=== PATIENT | female | born 1960 | race Caucasian/White ===

== ENCOUNTER 2016-06-20 16:42 | Emergency (ER) | payer BC ==
[~2016-06-20] VITALS: Ht 152.4 cm; Wt 64.6 kg
[~2016-06-20 16:42] MED LIST: ALBUAER19 INH; AMT10 PO; CHOL100010 PO; LINA1CAP2 PO; METO50TA7 PO
[2016-06-20 16:46] VITALS: TEMP 36.9; Ht 152.4 cm; Wt 64.6 kg
[2016-06-20] MEDS ORDERED: DiphenhydrAMINE HCL 50 MG/ML VIAL IV STA ×2 (16:59→17:52)
[2016-06-20] MEDS ORDERED: KETOROLAC TROMETHAMINE 30 MG/ML VIAL IV STA (16:59)
[2016-06-20] MEDS ORDERED: PROCHLORPERAZINE 5 MG/ML 2 ML VIAL IV STA (16:59)
[2016-06-20] MEDS ORDERED: SODIUM CHLORIDE 0.9% 1000ML 2,000 ML IV STA (17:00)
[2016-06-20 17:21] LABS: BASO % 0.3 %; BASO ABS # 0.02 K/uL (0-0.2); COMPLETE YES; EOS % 1.6 %; HEMATOCRIT 38.7 % (37-47); IG% 0.2 %; LYMPH % 28.5 %; LYMPH ABS # 1.77 K/uL (1.2-3.4); MEAN CORPUSCULAR HEMOGLOBIN 31.4 pg (25-34); MEAN CORPUSCULAR HGB CONC 34.9 g/dl (32-36); MEAN PLATELET VOLUME 9.5 fL (7.4-10.4); MONO % 8.2 %; NEUT % 61.2 %; PLATELET COUNT 301 K/uL (130-400); WHITE BLOOD COUNT 6.22 K/uL (4.8-10.8)
[2016-06-20] MEDS ORDERED: SERT1TAB88 (17:21)
[2016-06-20] MEDS ORDERED: TPRSR/25 PO (17:21)
[2016-06-20] MEDS ORDERED: SCOP1.5D2 TOP (17:21)
[2016-06-20 17:38] LABS: ALT/SGPT 41 U/L (12-78); AST/SGOT 27 U/L (15-37); BLOOD UREA NITROGEN 14 mg/dl (7-18); BUN/CREATININE RATIO 18.4 (10-20); CALCIUM 9.1 mg/dl (8.5-10.1); CARBON DIOXIDE 31 mmol/L (21-32); CHLORIDE 105 mmol/L (98-107); CREATININE 0.77 mg/dl (0.60-1.20); GLUCOSE 102 mg/dl (70-99); POTASSIUM 4.2 mmol/L (3.5-5.1); SODIUM 143 mmol/L (136-145)
[2016-06-20] MEDS ORDERED: CHOL100027 PO (17:38)
[2016-06-20] MEDS ORDERED: VNTHFA/IN INH (17:38)
[2016-06-20 17:40] LABS: ALKALINE PHOSPHATASE 80 U/L (45-117)
[2016-06-20] MEDS ORDERED: ELET40TA PO (17:48)
[2016-06-20] MEDS ORDERED: METO10TA3 PO (17:48)
[2016-06-20] MEDS ORDERED: ANT25 PO (17:48)
[2016-06-20] MEDS ORDERED: MOME6000 NAE (17:48)
[2016-06-20] MEDS ORDERED: ATV5X PO (17:48)
[2016-06-20] MEDS ORDERED: ASTN NAE (17:48)
[2016-06-20 18:47] LABS: URINE APPEARANCE CLEAR (CLEAR); URINE BILIRUBIN NEG (NEG); URINE COLOR YELLOW; URINE NITRITE NEG (NEG); URINE SPECIFIC GRAVITY 1.016 (1.000-1.030); UROBILINOGEN NEG (NEG); ZZUR CULT IF INDIC CLEAN CATCH NO
[2016-06-20 18:49] LABS: MANUAL MICROSCOPIC REQUIRED? NO; REVIEW REQ? NO
[2016-06-20] MEDS ORDERED: HYDROmorphone INJ 0.5 MG/0.5 ML SYR IV STA (19:05)
[2016-06-20 19:21] VITALS: BP 110/72; PULSE 90; O2SAT 97
[2016-06-20] MEDS ORDERED: PANT40TA PO (21:19)
[2016-06-20] MEDS ORDERED: AMOX500C3 PO (21:45)
[2016-06-20] MEDS ORDERED: MULT-506 PO (21:53)
--- NOTE | 2016-06-20 21:56 | EMERGENCY ROOM VISIT NOTE ---
History Report prepared by Yulissa: Alexsandra Carroll Under the Supervision of: Dr. Ming Cabrera D.O. First contact with patient: 16:49 Chief Complaint: HEADACHE Stated Complaint: ACUTE NAUSEA, MIGRAINE History of Present Illness The patient is a 55 year old female who presents to the Emergency Room with complaints of constant headache for the past week. The patient has a history of abdominal migraines and has been experiencing symptoms for 10+ years. She has been experiencing symptoms of her abdominal migraines for the past week. She saw both her PCP and her GI doctor, Dr. Ibrahim, this week for her symptoms. Dr. Ibrahim prescribed scopolamine patches, which the patient tried but states that they did not help and only made her groggy. The patient reports nausea and headache. Her headache came on gradually and is located in the front of her head. She notes tinnitus. These symptoms are consistent with her typical migraine headaches. She rates her pain as an 8/10 in severity. The patient denies abdominal pain, vomiting, and changes in vision. She has been able to keep food and water down, and ate 2 pieces of toast earlier today. She tried taking all of her usual medications without any relief of her symptoms. 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 The patient had a normal bowel movement this morning. Source of History: patient Onset: 1 week ago Position: head Symptom Intensity: 8/10 Timing: constant Modifying Factors (Relieving): other (none) Associated Symptoms: + nausea, No abdominal pain, No vomiting Note: Pt notes tinnitus. Review of Systems See HPI for pertinent positives & negatives. A total of 10 systems reviewed and were otherwise negative. Past Medical & Surgical Medical Problems: (1) Bronchitis (2) Chest pain (3) IBS (irritable bowel syndrome) (4) IgA deficiency (5) Migraine (6) Pancreatitis (7) Pancreatitis (8) Pneumonia (9) UTI (urinary tract infection) Family History FH: heart disease Kidney disease Social History Smoking Status: Never Smoker Alcohol Use: none Drug Use: none Marital Status: Housing Status: lives with family Occupation Status: employed Current/Historical Medications Scheduled Amitriptyline HCl (Amitriptyline HCl), 30 MG PO HS Amoxicillin (Amoxil), 500 MG PO QPM Cholecalciferol (Vitamin D 1000 Unit), 1,000 INTER.UNIT PO DAILY Eletriptan (Relpax), 40 MG PO DIRECTED Linaclotide (Linzess), 290 MG PO 3XWK Metoprolol Succinate (Metoprolol Succinate ER), 25 MG PO DAILY Multivitamin (Multivitamin), 1 TAB PO DAILY Pantoprazole (Protonix), 40 MG PO DAILY Scopolamine (Transderm-Scop), 1 PATCH TOP UD Scheduled PRN Azelastine Hcl (Astelin Nasal [place]), 2 SPRAYS EAGLE DAILY PRN for Nasal Congestion Lorazepam (Lorazepam), 1 TAB PO Q8 PRN for Anxiety Meclizine HCl (Meclizine HCl), 0.5-1 TAB PO TID PRN for Dizziness or Vertigo Metoclopramide HCl (Metoclopramide HCl), 5 MG PO ACHS PRN for Mometasone Furoate (Nasal) (Mometasone Furoate), 1 SPRAY EAGLE BID PRN for Nasal Congestion Allergies Coded Allergies: Metoclopramide (Verified Allergy, Intermediate, ADVERSE REACTIONS, 04/24/15 ) Atropine (Verified Allergy, Unknown, LOMOTIL, 04/24/15) Diphenoxylate (Verified Allergy, Unknown, LOMOTIL, 04/24/15) Morphine (Verified Allergy, Unknown, 09/20/12) ANXIOUS/NERVOUS Sulfa Drugs (Verified Allergy, Unknown, BACTRIM-HEPATITIS, 04/24/15) Sulfamethoxazole (Verified Allergy, Unknown, 04/24/15) Promethazine (Verified Adverse Reaction, Mild, ANXIOUS,NERVOUS, 04/24/15) ANXIOUS/NERVOUS Physical Exam Vital Signs Date Time Temp Pulse Resp B/P Pulse Ox O2 Delivery O2 Flow Rate FiO2 06/20/16 19:21 90 16 110/72 97 Room Air 06/20/16 16:46 36.9 93 18 105/71 95 Room Air Ambu-Bag Physical Exam GENERAL: alert, well appearing, sitting up in bed, well nourished, no distress, non-toxic EYE EXAM: normal conjunctiva, PERRL and EOM's intact EARS: TMs clear bilaterally OROPHARYNX: no exudate, no erythema, lips, buccal mucosa, and tongue normal and mucous membranes are moist NECK: supple, no nuchal rigidity, no adenopathy, non-tender LUNGS: Clear to auscultation. Normal chest wall mechanics HEART: no murmurs, S1 normal and S2 normal ABDOMEN: abdomen soft, non-tender, normo-active bowel sounds, no masses, no rebound or guarding. BACK: Back is symmetrical on inspection and there is no deformity, no midline tenderness, no CVA tenderness. SKIN: no rashes and no bruising UPPER EXTREMITIES: upper extremities are grossly normal. LOWER EXTREMITIES: No pitting edema. NEURO EXAM: Normal sensorium, cranial nerves II-XII intact, normal speech, no weakness of arms, no weakness of legs. No drift. Finger to nose intact. Gross sensation intact. Medical Decision & Procedures Laboratory Results 06/20/16 17:12 Red Blood Count 4.30, Mean Corpuscular Volume 90.0, Mean Corpuscular Hemoglobin 31.4, Mean Corpuscular Hemoglobin Concent 34.9, Mean Platelet Volume 9.5, Neutrophils (%) (Auto) 61.2, Lymphocytes (%) (Auto) 28.5, Monocytes (%) (Auto) 8.2, Eosinophils (%) (Auto) 1.6, Basophils (%) (Auto) 0.3, Neutrophils # (Auto) 3.81, Lymphocytes # (Auto) 1.77, Monocytes # (Auto) 0.51, Eosinophils # (Auto) 0.10, Basophils # (Auto) 0.02 06/20/16 17:12 Test 06/20/16 17:12 06/20/16 18:30 White Blood Count 6.22 K/uL (4.8-10.8) Red Blood Count 4.30 M/uL (4.2-5.4) Hemoglobin 13.5 g/dL (12.0-16.0) Hematocrit 38.7 % (37-47) Mean Corpuscular Volume 90.0 fL (80-100) Mean Corpuscular Hemoglobin 31.4 pg (25-34) Mean Corpuscular Hemoglobin Concent 34.9 g/dl (32-36) Platelet Count 301 K/uL (130-400) Mean Platelet Volume 9.5 fL (7.4-10.4) Neutrophils (%) (Auto) 61.2 % Lymphocytes (%) (Auto) 28.5 % Monocytes (%) (Auto) 8.2 % Eosinophils (%) (Auto) 1.6 % Basophils (%) (Auto) 0.3 % Neutrophils # (Auto) 3.81 K/uL (1.4-6.5) Lymphocytes # (Auto) 1.77 K/uL (1.2-3.4) Monocytes # (Auto) 0.51 K/uL (0.11-0.59) Eosinophils # (Auto) 0.10 K/uL (0-0.5) Basophils # (Auto) 0.02 K/uL (0-0.2) RDW Standard Deviation 40.2 fL (36.4-46.3) RDW Coefficient of Variation 12.2 % (11.5-14.5) Immature Granulocyte % (Auto) 0.2 % Immature Granulocyte # (Auto) 0.01 K/uL (0.00-0.02) Anion Gap 7.0 mmol/L (3-11) Est Creatinine Clear Calc Drug Dose 67.6 ml/min Estimated GFR () 99.3 Estimated GFR (Non- 85.7 BUN/Creatinine Ratio 18.4 (10-20) Calcium Level 9.1 mg/dl (8.5-10.1) Total Bilirubin 0.3 mg/dl (0.2-1) Direct Bilirubin < 0.1 mg/dl (0-0.2) Aspartate Amino Transf (AST/SGOT) 27 U/L (15-37) Alanine Aminotransferase (ALT/SGPT) 41 U/L (12-78) Alkaline Phosphatase 80 U/L (45-117) Total Protein 7.7 gm/dl (6.4-8.2) Albumin 4.1 gm/dl (3.4-5.0) Lipase 126 U/L (73-393) Urine Color YELLOW Urine Appearance CLEAR (CLEAR) Urine pH 6.0 (4.5-7.5) Urine Specific [place] 1.016 (1.000-1.030) Urine Protein NEG (NEG) Urine Glucose (UA) NEG (NEG) Urine Ketones NEG (NEG) Urine Occult Blood NEG (NEG) Urine Nitrite NEG (NEG) Urine Bilirubin NEG (NEG) Urine Urobilinogen NEG (NEG) Urine Leukocyte Esterase NEG (NEG) Urine WBC (Auto) 1-5 /hpf (0-5) Urine RBC (Auto) 0-4 /hpf (0-4) Urine Hyaline Casts (Auto) 1-5 /lpf (0-5) Urine Epithelial Cells (Auto) 10-20 /lpf (0-5) Urine Bacteria (Auto) NEG (NEG) Urine Test NEG (NEG) Laboratory results per my review. Medications Administered Medications (Trade) Dose Ordered Sig/Myra Route Start Time Stop Time Status Last Admin Dose Admin Prochlorperazine Edisylate (Compazine Inj) 10 mg NOW STAT IV 06/20/16 16:59 06/20/16 17:00 DC 06/20/16 17:22 10 MG Diphenhydramine HCl (Benadryl Inj) 50 mg NOW STAT IV 06/20/16 16:59 06/20/16 17:00 DC 06/20/16 17:22 50 MG Ketorolac Tromethamine 30 mg 30 mg NOW STAT IV 06/20/16 16:59 06/20/16 17:00 DC 06/20/16 17:23 30 MG Sodium Chloride (Nss 1000ml) 2,000 ml @ 999 mls/hr Q2H1M STAT IV 06/20/16 17:00 06/20/16 19:00 DC 06/20/16 17:21 999 MLS/HR Diphenhydramine HCl (Benadryl Inj) 25 mg NOW STAT IV 06/20/16 17:52 06/20/16 17:53 DC 06/20/16 17:55 25 MG Hydromorphone HCl (Dilaudid Inj) 0.5 mg NOW STAT IV 06/20/16 19:05 06/20/16 19:06 DC 06/20/16 19:20 0.5 MG ED Course ED COURSE: Vital signs were reviewed and showed normal vitals The patients medical record was reviewed The above diagnostic studies were performed and reviewed. ED treatments and interventions as stated above. 1650: The patient was evaluated in room B7. A complete history and physical examination was performed. 1659: Toradol 30 mg IV, Benadryl 50 mg IV, Compazine 10 mg IV 1700: NSS 2000 ml @ 999 mls/hr IV 174: I reassessed the patient. She got the Compazine before she got the Benadryl, so she is feeling very shaky. 175: Benadryl 25 mg IV 1902: Upon reevaluation, the patient is feeling better. I discussed my findings with the patient and she understands and agrees with the treatment plan. Based on the patients age, coexisting illnesses, exam and lab findings the decision to treat as an outpatient was made. The patient remained stable while under my care. The patient appeared well at the time of discharge. 1905: Dilaudid 0.5 mg IV Medical Decision Differential Diagnosis includes but is not limited to headache, tension headache , cluster headache, migraine, subarachnoid hemorrhage, meningitis, mass, central venous thrombus, concussion, trauma and epidural/subdural hemorrhage. Patient is a 55-year-old female who presents the ER for her typical abdominal migraine. It's associated with a headache and nausea. The headaches unchanged in anyway shape or form from her typical headaches. She is completely neurologically intact. Headache came on gradually and progressively worsened. Nothing to suggest a subarachnoid bleed and no trauma. No fevers to suggest infection. No signs of meningitis or encephalitis on exam. CBC along with BMP , LFTs, bilirubin and lipase is unremarkable. UA was negative. was negative. She was given IV Compazine prior to Benadryl and she became very anxious. She was given additional dose of Benadryl and felt significantly better. She was also given Dilaudid and her headache did improve. Patient was given 2 L normal saline and was discharged improved to follow-up with her primary care doctor. Discussed with Pt concerning signs and symptoms to watch out for. Pt was instructed to follow up with their PCP and discussed with the patient their option to return to the ED at anytime for persistent or worsening symptoms. The appropriate anticipatory guidance and out-patient management, including indications for return to the emergency department, were explained at length to the patient and understood. Impression Primary Impression: Headache Scribe Attestation The scribe's documentation has been prepared under my direction and personally reviewed by me in its entirety. I confirm that the note above accurately reflects all work, treatment, procedures, and medical decision making performed by me. Departure Information Dispostion Home / Self-Care Referrals Rachel Vargas DO (PCP) Forms HOME CARE DOCUMENTATION FORM, IMPORTANT VISIT INFORMATION Patient Instructions Headache Pain, My [facility] Additional Instructions Please follow up with your primary care doctor with in the next 24 hours. Any worsening of your symptoms, please return to the ED immediately. This includes worsening headache, change in vision, weakness in the arms or legs, or any other concerning signs or symptoms from your standpoint. Please do not drive, work, operate heavy machinery for the next 12 hours. Problem Qualifiers Primary Impression: Headache Headache type: unspecified Headache chronicity pattern: unspecified pattern Intractability: not intractable Qualified Codes: R51 - Headache
== END 2016-06-20 19:45 | disposition home or self-care (01) ==
LOC: C.EDB 16:43
DX: R51 Headache (principal); K58.9 Irritable bowel syndrome, unspecified; K85.90 Acute pancreatitis without necrosis or infection, unspecified; Z87.440 Personal history of urinary (tract) infections; Z79.899 Other long term (current) drug therapy; Z88.2 Allergy status to sulfonamides; Z88.5 Allergy status to narcotic agent; Z88.8 Allergy status to other drugs, medicaments and biological substances; Z82.49 Family history of ischemic heart disease and other diseases of the circulatory system; Z84.1 Family history of disorders of kidney and ureter

== ENCOUNTER → 2016-08-23 | Outpatient (CLI) | payer BC ==
[~2016-08-23] MED LIST changes: -ALBUAER19 INH; +AMOX500C3 PO; +ANT25 PO; +ASTN NAE; +ATV5X PO; -CHOL100010 PO; +CHOL100027 PO; +ELET40TA PO; +METO10TA3 PO; -METO50TA7 PO; +MOME6000 NAE; +MULT-506 PO; +PANT40TA PO; +SCOP1.5D2 TOP; +TPRSR/25 PO
== END | disposition home or self-care (01) ==
LOC: C.PAPS 13:40
PROVIDERS: ATTEND Obstetrics & Gynecology
DX: Z01.419 Encounter for gynecological examination (general) (routine) without abnormal findings (principal)

== ENCOUNTER → 2016-09-08 | Outpatient (CLI) | payer BC ==
[~2016-09-08] MED LIST changes: -SCOP1.5D2 TOP; +SCOP1DIS14 TOP
--- NOTE | 2016-09-08 12:33 | MAMMOGRAPHY REPORT ---
BILATERAL DIGITAL SCREENING MAMMOGRAM TOMOSYNTHESIS WITH CAD: 09/08/2016 CLINICAL HISTORY: Routine screening. Patient has no complaints. TECHNIQUE: Breast tomosynthesis in addition to standard 2D mammography was performed. Current study was also evaluated with a Computer Aided Detection (CAD) system. COMPARISON: Comparison is made to exams dated: 09/04/2015 mammogram, 09/02/2014 mammogram, 08/29/2013 m ammogram, 08/31/2012 mammogram, 08/25/2012 mammogram, and 07/21/2011 mammogram - [facility] enter. BREAST COMPOSITION: The tissue of both breasts is heterogeneously dense, which may obscure small mas ses. FINDINGS: There is a 5 mm nodular asymmetry with associated microcalcification in the superior poste rior left breast, best seen on the MLO view, but thought to project laterally based on the tomosynthe sis localizer bar (best seen on MLO slice 32). Additional spot magnification views and a possible ul trasound are recommended. Spot magnification in the left exaggerated CC positioning may be useful. There are scattered stable benign coarse and rodlike calcifications elsewhere in the breasts. No oth er new suspicious mass, architectural distortion or cluster of microcalcifications is seen. IMPRESSION: ACR BI-RADS CATEGORY 0: INCOMPLETE EVALUATION: NEED ADDITIONAL IMAGING EVALUATION The 5 mm asymmetry with associated clustered microcalcification in the superior posterior left breast needs additional evaluation. The patient will be called to schedule an appointment. Approximately 10% of breast cancers are not detected with mammography. A negative mammographic report should not delay biopsy if a clinically suggestive mass is present. Sabi Laguna M.D. ay/:09/08/2016 08:58:20 Paper Counter: Wilma Reece, [facility] letter sent: Addl Imaging 0 BI-RADS Code: ACR BI-RADS Category 0: Incomplete Evaluation: Need Additional Imaging Evaluation
== END | disposition home or self-care (01) ==
LOC: C.MAMM 08:16
PROVIDERS: ATTEND Obstetrics & Gynecology
DX: Z12.31 Encounter for screening mammogram for malignant neoplasm of breast (principal)

== ENCOUNTER → 2016-09-16 | Outpatient (CLI) | payer BC ==
--- NOTE | 2016-09-16 15:22 | MAMMOGRAPHY REPORT ---
UNILATERAL LEFT DIGITAL DIAGNOSTIC MAMMOGRAM TOMOSYNTHESIS: 09/16/2016 CLINICAL HISTORY: Callback from screening mammogram for left breast asymmetry and associated calcific ations. TECHNIQUE: Breast tomosynthesis in addition to standard 2D mammography was performed. Spot magnific ation left CC and ML views and spot compression left MLO 2-D and tomosynthesis images were obtained. COMPARISON: Comparison is made to exams dated: 09/08/2016 mammogram, 09/04/2015 mammogram, 08/29/2013 ma mmogram, 09/02/2014 mammogram, 08/31/2012 mammogram, and 08/25/2012 mammogram - [facility] nter. BREAST COMPOSITION: The tissue of the left breast is heterogeneously dense, which may obscure small masses. FINDINGS: Spot magnification views of the left breast demonstrate a small cluster of calcifications i n the left upper outer quadrant, measuring approximately 4 mm on the ML view. On the spot magnificat ion view, the calcifications appear stable compared to multiple prior exams including the 2013 and exams and likely also the July 2011 exam. The calcifications also demonstrate layering on the late ral view, suggestive of benign milk of calcium. The asymmetry associated with the calcifications als o appears stable to the prior exams including the 2012 and 2011 exams. Given the long-term stability , the findings are considered benign. IMPRESSION: ACR BI-RADS CATEGORY 2: BENIGN Small cluster of calcifications and associated asymmetry in the left upper outer quadrant are stable dating back to the 2012 and 2011 exams, and considered benign given long-term stability. There is no mammographic evidence of malignancy. A 1 year screening mammogram is recommended. The patient has b een verbally notified of the results. Approximately 10% of breast cancers are not detected with mammography. A negative mammographic report should not delay biopsy if a clinically suggestive mass is present. Pamela Betancourt M.D. /:09/16/2016 09:50:30 Sewing Machine Operator Paper Bags: Isamar WANG)(Bony), [facility] letter sent: Normal 1/2 BI-RADS Code: ACR BI-RADS Category 2: Benign
== END | disposition home or self-care (01) ==
LOC: C.MAMM 08:38
PROVIDERS: ATTEND Obstetrics & Gynecology
DX: N64.89 Other specified disorders of breast (principal); R92.1 Mammographic calcification found on diagnostic imaging of breast

== ENCOUNTER → 2017-10-21 | Outpatient (CLI) | payer OTHER ==
[~2017-10-21] MED LIST changes: -AMOX500C3 PO; -ANT25 PO; +CHOL100010 PO; -CHOL100027 PO; -ELET40TA PO; +KETO10TA PO; -LINA1CAP2 PO; +MAGN250T16 PO; -METO10TA3 PO; +METO1TAB54 PO; +MISCCAP80 PO; +ONDA4TAB46 PO; -PANT40TA PO; +PGX PO; -SCOP1DIS14 TOP; +[UNRECOGNIZED DRUG - OTHER] PO; +[UNRECOGNIZED DRUG - OTHER] PO; +[UNRECOGNIZED DRUG - OTHER] PO
--- NOTE | 2017-10-21 15:42 | MAMMOGRAPHY REPORT ---
BILATERAL DIGITAL SCREENING MAMMOGRAM TOMOSYNTHESIS WITH CAD: 10/21/2017 CLINICAL HISTORY: Routine screening. TECHNIQUE: The study was acquired using full field digital technology and interpreted from soft copy. Breast tomosynthesis in addition to standard 2D mammography was performed. Current study was also ev aluated with a Computer Aided Detection (CAD) system. COMPARISON: Comparison is made to exams dated: 09/16/2016 mammogram, 09/08/2016 mammogram, 09/04/2015 ma mmogram, 09/02/2014 mammogram, 08/29/2013 mammogram, and 08/25/2012 mammogram - [facility] nter. BREAST COMPOSITION: The tissue of both breasts is heterogeneously dense, which may obscure small mass es. FINDINGS: No suspicious masses, calcifications, or areas of architectural distortion are noted in either breast . There has been no significant interval change compared to prior exams. Scattered bilateral benign- appearing calcifications are again noted. IMPRESSION: ACR BI-RADS CATEGORY 2: BENIGN There is no mammographic evidence of malignancy. A 1 year screening mammogram is recommended.( 019) The patient will receive written notification of the results. Some breast cancers are not detected with mammography. A negative mammographic report should not marshall y biopsy if a clinically suggestive mass is present. Pamela Betancourt M.D. ah/:10/21/2017 15:15:44 Exit Booth Agent: RT David(Jacob)(M), [facility] letter sent: Normal 1/2 BI-RADS Code: ACR BI-RADS Category 2: Benign
== END | disposition home or self-care (01) ==
LOC: C.MAMM 13:46
PROVIDERS: ATTEND Obstetrics & Gynecology
DX: Z12.31 Encounter for screening mammogram for malignant neoplasm of breast (principal)